=== PATIENT | male | born 1980 | race Caucasian/White ===

== ENCOUNTER 2021-01-14 03:22 | Emergency (ER) | payer BC ==
[~2021-01-14] VITALS: Ht 172.7 cm; Wt 94.3 kg
[2021-01-14 03:55] VITALS: BP 142/84
[2021-01-14] MEDS ORDERED: ALPRAZOLAM 0.5 MG TABLET ONE (04:09)
[2021-01-14] MEDS ORDERED: ALPR0.5T PO (04:10)
[2021-01-14] MEDS ORDERED: ALPRAZOLAM 0.5 MG TABLET PO ONE (04:30)
== END 2021-01-14 05:27 | disposition home or self-care (01) ==
LOC: ER 03:28
DX: F41.0 Panic disorder [episodic paroxysmal anxiety] (principal)